=== PATIENT | female | born 1930 | race Caucasian/White ===

== ENCOUNTER → 2016-08-03 | Outpatient (CLI) | payer BC ==
[~2016-08-03] MED LIST: ASPI1TAB2 PO; ENAL10TA88 PO; LEVO50TA PO; METO1TAB69 PO; MULT-190 PO; MULT-663 PO; SIMV40TA2 PO; TRIATAB3 PO
[2016-08-03 11:06] LABS: CHOLESTEROL/HDL RATIO 2.3
== END | disposition home or self-care (01) ==
LOC: C.LABBC 08:06
PROVIDERS: ATTEND Internal Medicine Cardiovascular Disease
DX: E78.5 Hyperlipidemia, unspecified (principal)

== ENCOUNTER → 2016-08-30 | Outpatient (CLI) | payer BC ==
[~2016-08-30] MED LIST changes: +METO100T44 PO; -METO1TAB69 PO
--- NOTE | 2016-08-30 16:24 | MAMMOGRAPHY REPORT ---
BILATERAL DIGITAL SCREENING MAMMOGRAM WITH CAD: 08/30/2016 CLINICAL HISTORY: Routine screening. TECHNIQUE: Bilateral CC and MLO views were obtained. Current study was also evaluated with a Comput er Aided Detection (CAD) system. COMPARISON: Comparison is made to exams dated: 06/13/2013 mammogram, 08/27/2015 mammogram, 08/20/2014 m ammogram, 11/27/2012 mammogram, 05/29/2012 ultrasound, and 05/29/2012 mammogram - [facility]. BREAST COMPOSITION: The tissue of both breasts is heterogeneously dense, which may obscure small ma sses. FINDINGS: There are moderate vascular calcifications in the breasts. Scattered stable benign coarse calcifications as well. No new suspicious mass, architectural distortion or cluster of suspicious microcalcifications is seen. IMPRESSION: ACR BI-RADS CATEGORY 1: NEGATIVE There is no mammographic evidence of malignancy. A 1 year screening mammogram is recommended. The p atient will receive written notification of the results. Approximately 10% of breast cancers are not detected with mammography. A negative mammographic repor t should not delay biopsy if a clinically suggestive mass is present. Merlene Dawkins M.D. ay/:08/30/2016 15:31:46 Scada Technician: Mina WILLIAM(Kimmie)(M), [facility] letter sent: Normal 1/2 BI-RADS Code: ACR BI-RADS Category 1: Negative
== END | disposition home or self-care (01) ==
LOC: C.MAMM 10:34
PROVIDERS: ATTEND Internal Medicine
DX: Z12.31 Encounter for screening mammogram for malignant neoplasm of breast (principal)

== ENCOUNTER → 2017-02-01 | Outpatient (CLI) | payer BC ==
[~2017-02-01] MED LIST changes: -METO100T44 PO; +METO1TAB69 PO
[2017-02-01 10:54] LABS: BASO % 0.6 %; BASO ABS # 0.05 K/uL (0-0.2); COMPLETE YES; EOS % 5.2 %; IG% 0.2 %; LYMPH % 29.1 %; LYMPH ABS # 2.39 K/uL (1.2-3.4); MEAN CELL VOLUME 87.3 fL (80-100); MEAN CORPUSCULAR HEMOGLOBIN 30.1 pg (25-34); MEAN CORPUSCULAR HGB CONC 34.5 g/dl (32-36); MEAN PLATELET VOLUME 9.5 fL (7.4-10.4); MONO % 9.5 %; NEUT % 55.4 %; PLATELET COUNT 297 K/uL (130-400); RED BLOOD COUNT 4.58 M/uL (4.2-5.4); WHITE BLOOD COUNT 8.22 K/uL (4.8-10.8)
[2017-02-01 11:17] LABS: ALT/SGPT 17 U/L (12-78); AST/SGOT 18 U/L (15-37); BLOOD UREA NITROGEN 22 mg/dl (7-18); BUN/CREATININE RATIO 16.5 (10-20); CALCIUM 9.1 mg/dl (8.5-10.1); CARBON DIOXIDE 30 mmol/L (21-32); CHLORIDE 104 mmol/L (98-107); GLUCOSE 130 mg/dl (70-99); POTASSIUM 3.9 mmol/L (3.5-5.1); SODIUM 139 mmol/L (136-145)
[2017-02-01 11:27] LABS: ALKALINE PHOSPHATASE 63 U/L (45-117); CHOLESTEROL 152 mg/dl (0-200); CHOLESTEROL/HDL RATIO 2.2; HDL CHOLESTEROL 69 mg/dl; LDL CHOLESTEROL CALCULATED 59 mg/dl; TRIGLYCERIDES 122 mg/dl (0-150); VERY LOW DENSITY LIPOPROT CALC 24 mg/dl
[2017-02-01 12:19] LABS: ESTIMATED AVERAGE GLUCOSE 137 mg/dl; HA1C FLAG Normal (Normal)
--- NOTE | 2017-02-16 09:05 | CODING QUERY MEDICAL NECESSITY ---
CQSUPPORTING DIAGNOSIS NEEDED A supporting diagnosis is required for the test/procedure performed on this patient in order for us to be reimbursed by the patient's insurance. Please provide a supporting diagnosis for the following test/procedure listed below next to the test name along with your signature. *If there is no additional diagnosis for this patient that would support the following test/procedure please document that below next to the test/procedure. Test(s)/Procedure(s) that require a supporting diagnosis: DOS 02/01/17 VITAMIN D TEST VITAMIN B12 TEST Provider Signature: Date: Thank you Ay[facility] Once completed, please kindly fax back to [phone] For questions please call [phone]
== END | disposition home or self-care (01) ==
LOC: C.LABBC 07:40
PROVIDERS: ATTEND Internal Medicine
DX: N18.3 Chronic kidney disease, stage 3 (moderate) (principal)

== ENCOUNTER → 2017-08-23 | Outpatient (CLI) | payer BC ==
[~2017-08-23] MED LIST changes: +METO100T44 PO; -METO1TAB69 PO
[2017-08-23 10:40] LABS: BASO % 0.6 %; BASO ABS # 0.05 K/uL (0-0.2); EOS % 2.7 %; EOS ABS # 0.24 K/uL (0-0.5); HEMATOCRIT 37.6 % (37-47); HEMOGLOBIN 13.1 g/dL (12.0-16.0); IG# 0.02 K/uL (0.00-0.02); LYMPH % 26.5 %; LYMPH ABS # 2.38 K/uL (1.2-3.4); MEAN CELL VOLUME 86.4 fL (80-100); MEAN CORPUSCULAR HEMOGLOBIN 30.1 pg (25-34); MEAN CORPUSCULAR HGB CONC 34.8 g/dl (32-36); MEAN PLATELET VOLUME 9.5 fL (7.4-10.4); MONO % 8.2 %; MONO ABS # 0.74 K/uL (0.11-0.59); NEUT % 61.8 %; NEUT ABS # 5.55 K/uL (1.4-6.5); PLATELET COUNT 310 K/uL (130-400); RED CELL DISTRIBUTION WIDTH CV 12.5 % (11.5-14.5); WHITE BLOOD COUNT 8.98 K/uL (4.8-10.8)
[2017-08-23 10:54] LABS: HEMOGLOBIN A1C 6.4 % (4.5-5.6)
[2017-08-23 11:03] LABS: ALBUMIN 3.6 gm/dl (3.4-5.0); ALT/SGPT 19 U/L (12-78); BLOOD UREA NITROGEN 21 mg/dl (7-18); CALCIUM 9.1 mg/dl (8.5-10.1); CARBON DIOXIDE 28 mmol/L (21-32); CREATININE 1.24 mg/dl (0.60-1.20); GLUCOSE 147 mg/dl (70-99); POTASSIUM 3.9 mmol/L (3.5-5.1); SODIUM 133 mmol/L (136-145)
[2017-08-23 11:13] LABS: ALKALINE PHOSPHATASE 65 U/L (45-117); AST/SGOT 20 U/L (15-37); TOTAL PROTEIN 6.9 gm/dl (6.4-8.2)
== END | disposition home or self-care (01) ==
LOC: C.LABBC 08:44
PROVIDERS: ATTEND Internal Medicine
DX: I10 Essential (primary) hypertension (principal); E78.5 Hyperlipidemia, unspecified; E11.9 Type 2 diabetes mellitus without complications; D51.0 Vitamin B12 deficiency anemia due to intrinsic factor deficiency; E03.9 Hypothyroidism, unspecified

== ENCOUNTER → 2017-09-05 | Outpatient (CLI) | payer BC ==
--- NOTE | 2017-09-06 07:38 | MAMMOGRAPHY REPORT ---
BILATERAL DIGITAL SCREENING MAMMOGRAM TOMOSYNTHESIS WITH CAD: 09/05/2017 CLINICAL HISTORY: Routine screening. Patient has no complaints. TECHNIQUE: Breast tomosynthesis in addition to standard 2D mammography was performed. Current study was also evaluated with a Computer Aided Detection (CAD) system. COMPARISON: Comparison is made to exams dated: 08/30/2016 mammogram, 08/27/2015 mammogram, 08/20/2014 ma mmogram, 06/13/2013 mammogram, 05/25/2012 mammogram, and 04/26/2011 mammogram - [facility]. BREAST COMPOSITION: The tissue of both breasts is heterogeneously dense, which may obscure small mas ses. FINDINGS: The glandular pattern is patchy but similar to prior mammograms. There are stable intramam christa lymph nodes in the right upper outer quadrant posteriorly. There are scattered and grouped gema gn coarse calcifications and moderate vascular calcifications in the breasts. No new suspicious mass , architectural distortion or cluster of microcalcifications is seen. IMPRESSION: ACR BI-RADS CATEGORY 1: NEGATIVE There is no mammographic evidence of malignancy. A 1 year screening mammogram is recommended. The pa tient will receive written notification of the results. Approximately 10% of breast cancers are not detected with mammography. A negative mammographic report should not delay biopsy if a clinically suggestive mass is present. Merlene Dawkins M.D. ay/:09/05/2017 11:15:45 Costume Mistress: Ashely KIRAN)(Tia), [facility] letter sent: Normal 1/2 BI-RADS Code: ACR BI-RADS Category 1: Negative
== END | disposition home or self-care (01) ==
LOC: C.MAMM 10:34
PROVIDERS: ATTEND Internal Medicine
DX: Z12.31 Encounter for screening mammogram for malignant neoplasm of breast (principal)